=== PATIENT | female | born 1965 | race Caucasian/White ===

== ENCOUNTER → 2021-01-10 16:56 | Outpatient (CLI) | payer OTHER, SELFPAY ==
--- NOTE | ~2021-01-10 | MM_ITS ---
EXAMINATION: MM screening [facility] BI w claus HISTORY: Screening mammogram TECHNIQUE: Craniocaudal and mediolateral oblique 3-D tomosynthesis images were obtained and synthetic 2-D images were generated. CAD analysis was submitted and interpreted. COMPARISON: 02/19/2018, 01/29/2017, 01/11/2016 BREAST PARENCHYMAL COMPOSITION: There are scattered areas of fibroglandular density. FINDINGS: There is no evidence of suspicious mass, calcification, or architectural distortion to sugg est malignancy in either breast. There has been no suspicious interval change. IMPRESSION: 1. No mammographic evidence of malignancy. 2. Recommend routine screening mammography in one year. BI-RADS Category 1: Negative Reviewed, dictated and finalized at location A.
== END ==
PROVIDERS: Visit Provider Obstetrics & Gynecology
DX: Z12.31 Encounter for screening mammogram for malignant neoplasm of breast (principal)
CPT/HCPCS: 77063; 77067

== ENCOUNTER → 2022-05-03 16:58 | Outpatient (CLI) | payer OTHER, SELFPAY ==
--- NOTE | ~2022-05-03 | MM_ITS ---
EXAMINATION: MM screening [facility] BI w claus HISTORY: Screening mammogram TECHNIQUE: Craniocaudal and mediolateral oblique 3-D tomosynthesis images were obtained and synthetic 2-D images were generated. CAD analysis was submitted and interpreted. COMPARISON: 01/10/2021, 02/19/2018, 01/29/2017 BREAST PARENCHYMAL COMPOSITION: There are scattered areas of fibroglandular density. FINDINGS: No suspicious mass, calcification, or architectural distortion are identified in either [place] ast to suggest malignancy. There has been no suspicious interval change. IMPRESSION: 1. No mammographic evidence of malignancy. 2. Recommend routine screening mammography in one year. BI-RADS Category 1: Negative Reviewed, dictated and finalized at location B.
== END ==
PROVIDERS: PCP Internal Medicine; Visit Provider Internal Medicine
DX: Z12.31 Encounter for screening mammogram for malignant neoplasm of breast (principal)
CPT/HCPCS: 77063; 77067

== ENCOUNTER 2022-06-15 16:41 | Emergency (ER) | payer OTHER, SELFPAY ==
[2022-06-15 16:54] VITALS: BP 162/87; PULSE 99; RESP 16; TEMP 36.6; O2SAT 100
[2022-06-15 18:20] LABS: Appearance Urine Clear (Clear); Bilirubin Urine Negative (Negative); Blood Urine Negative (Negative); Color Urine Yellow (Yellow); Glucose Urine UA Negative (Negative); Ketones Urine Negative (Negative); Leukocyte Esterase Ur Negative LEU/UL (Negative); Nitrate Urine Negative (Negative); Protein Urine Negative (Negative); Specific Grav Ur >= 1.030 (1.001-1.035); Urobilinogen Urine 0.2 mg/dL (<2.0); pH Urine 5.5 (5.0-9.0)
[2022-06-15 18:39] LABS: Mucus Urine Rare /lpf; RBC Urine 0-2 /hpf (0-2); Squamous Epithelial Cell Urine Rare /hpf (Few); WBC Urine 0-3 /hpf
[2022-06-15 18:40] LABS: Add Urine Microscopic? YES
--- NOTE | 2022-06-15 20:52 | ED.BACK ---
HPI - Back Pain/Injury General Chief Complaint: Back Pain/Injury Stated Complaint: back pain Time Seen by Provider: 06/15/22 20:30 Source: RN notes reviewed History of Present Illness HPI Narrative: Patient presents emergency department from home for low back pain. Patient states that she has a history of chronic lower back pain since she had an epidural 30 years ago. She states her back began to ache approximately 10 days ago but has worsened over the past 3 days the pain is located in lower back and radiates pain into the bilateral legs she denies any direct trauma or injury she denies any fevers or chills abdominal pain bowel or bladder incontinence numbness or weakness of the extremities or any other symptoms. States she has been taking aspirin for the pain at home with minimal relief states she has never seen a back doctor for her symptoms. States that she has a flareup of her back pain approximately twice a year Related Data Home Medications Medication Instructions Recorded Confirmed alprazolam 0.25 mg tablet 0.25 mg PO .COMPLEX 08/05/19 loratadine 10 mg tablet 10 mg PO DAILY 08/05/19 Allergies Allergy/AdvReac Type Severity Reaction Status Date / Time Penicillins Allergy Unknown Verified 09/29/15 08:50 Review of Systems Review of Systems: Gen.: Denies fevers or chills ENT: Denies congestion Respiratory: Denies shortness of breath CV: Denies chest pain GI: Denies abdominal pain nausea, emesis or diarrhea denies incontinence Musculoskeletal: See HPI Neuro: Denies numbness, tingling, weakness or focal weakness Skin: Denies rash Except as documented, all other systems reviewed and negative [facility] Past Medical History Medical History (Updated 06/15/22 @ 20:56 by Candelario Wu DO) Patient denies significant medical history Family History Family History Mother Family history of type 2 diabetes mellitus Social History Social History Smoking status: Never smoker Alcohol intake: never Exam Narrative: APPEARANCE: No acute distress, nontoxic, resting in bed Eyes: EOMI HEENT: Normocephalic, atraumatic, CV: Regular rate and rhythm without murmur RESPIRATORY: No respiratory distress. Clear to auscultation bilaterally. Abdomen: Soft and nontender, no rebound or guarding MUSCULOSKELETAl: Moves all extremities, no clubbing cyanosis or edema Back: No midline lumbar tenderness to palpation or step-off, tender to palpation over bilateral paravertebral muscles L3-5 , pain increased with forward flexion NEURO: Awake and alert. Following commands, speech normal, no focal deficits, muscle strength 5 out of 5 bilateral lower extremities, bilateral patellar reflex 2+ SKIN:: Warm, dry. Normal Color no rash or lesions Course Course Emergency Course: Discussed with patient results of workup and diagnosis. Discussed need for follow-up with primary care, proper use of medication, and reasons to return to the emergency department. Patient understands and agrees to current treatment plan Vital Signs Vital signs: Vital Signs Temperature 97.9 F 06/15/22 16:54 Pulse Rate 99 06/15/22 16:54 Respiratory Rate 16 06/15/22 16:54 Blood Pressure 162/87 H 06/15/22 16:54 Pulse Oximetry 100 06/15/22 16:54 Oxygen Delivery Room Air 06/15/22 16:54 Temperature 97.9 F 06/15/22 16:54 Pulse Rate 99 06/15/22 16:54 Respiratory Rate 16 06/15/22 16:54 Blood Pressure 162/87 H 06/15/22 16:54 Pulse Oximetry 100 06/15/22 16:54 Oxygen Delivery Room Air 06/15/22 16:54 MDM - Back Pain/Injury MDM Narrative Medical decision making narrative: Patient?s pain is positional and localized to back without signs of cord compression or cauda equina. Normal nuerologic exams. No fever noted and no significant risk factors for osteomyelitis or spinal epidural abscess. No symptoms or signs t
[2022-06-15] MEDS: CYCLOBENZAPRINE HCL 10 MG TABLET PO (21:16)
[2022-06-15] MEDS: predniSONE 20 MG TABLET 60 MG PO (21:16)
[2022-06-15] MEDS: IBUPROFEN 600 MG TABLET PO (21:16)
== END 2022-06-15 21:00 | disposition home or self-care (01) ==
LOC: ANHED 21:12
PROVIDERS: Emergency Medicine; Emergency Provider Emergency Medicine; PCP Physician Assistant Medical
DX: M54.50 Low back pain, unspecified (principal)
CPT/HCPCS: 81001; 99283; A9270; J7512

== ENCOUNTER → 2022-09-15 16:13 | Outpatient (CLI) | payer OTHER, SELFPAY ==
--- NOTE | ~2022-09-15 | MR_ITS ---
MRI of the lumbar spine Clinical History: Back pain Technique: Axial T2-weighted images, and sagittal T1-weighted, T2-weighted, and T2 fat-sat images wer e acquired. Findings: There is no fracture nor lumbar spine. Minimal grade 1 retrolisthesis of L3 over L4 present . No suspicious or abnormal bone marrow signal abnormality identified. At L1-L2, there is no significant disc bulge or herniation. There is mild facet arthropathy. No spina l canal stenosis or neural foraminal narrowing. At L2-L3, there is no disc bulge. There is facet arthropathy. There is no jose spinal canal stenosis or neural foraminal narrowing. At L3-L4, there is disc bulge and facet arthropathy. There is probable focal mild to moderate thecal sac compression. There is mild bilateral neural foraminal narrowing. At L4-L5, there is minimal disc bulge. Facet joint arthropathy is present. There is minimal central c anal stenosis. There is minimal bilateral neural foraminal narrowing. At L5-S1, there is no disc bulge or herniation. There is facet arthropathy. No spinal canal stenosis or neural foraminal narrowing. Paravertebral soft tissues are unremarkable. Impression: Mild degenerative spondylosis, as detailed above. Minimal grade 1 retrolisthesis of L3 over L4. Reviewed, dictated and finalized at [facility]. REVERSER Impression: Mild degenerative spondylosis, as detailed above. Minimal grade 1 retrolisthesis of L3 over L4.
--- NOTE | ~2022-09-15 | XR_ITS ---
XR lumbar spine min 4V 09/15/2022 17:01 Indication: Back pain Procedure: 4 views lumbar spine Comparison: No prior studies for comparison. Findings: There is grade 1 spondylolisthesis at L5-S1. There is disc narrowing at L3-4 through L5-S1. There is facet hypertrophy at these levels. No acute fracture or traumatic malalignment. No signific ant alteration of alignment with flexion/extension. There is levoscoliosis. Pedicles intact. Sacral f oramen are symmetric. Impression: 1: Moderate lumbar spondylosis. Reviewed, dictated and finalized at location A. [employer]TO[employer] TECH[employer]OLOGIST Impression: 1: Moderate lumbar spondylosis.
== END ==
PROVIDERS: PCP Nurse Practitioner Adult Health; Visit Provider Nurse Practitioner Adult Health
DX: M47.816 Spondylosis without myelopathy or radiculopathy, lumbar region (principal); M43.16 Spondylolisthesis, lumbar region
CPT/HCPCS: 72110; 72148

== ENCOUNTER 2023-04-18 00:15 | Day surgery (SDC) | payer OTHER, SELFPAY ==
--- NOTE | 2023-04-10 18:38 | PC.NURSE ---
Report to the Outpatient Waiting Room, entrance under the green pavilion located off [facility], at time 0615 on date 04/18/23. Planned Procedure Time: 0815. Time changes happen often and if your time is changed the preop area will call you the afternoon before. - You and your visitor will be asked to self-screen and do not enter if you have any COVID symptoms. - A mask is optional within the hospital at this time. Patients may have clear liquids (water, carbonated beverages, clear teas, apple juice) until 3 hours prior to surgery with a maximum of 20 ounces. 0515 - No food from midnight until time of surgery - Infants may have breast milk until 4 hours before surgery, formula 6 hours prior to surgery. - Children will be allowed to drink immediately following surgery. If applicable, please bring a bottle or sippy cup to assist with drinking. Juice, water, soda, and popsicles are readily available. For infants on formula, please bring formula the day of surgery. Pacifiers are allowed. Take the following medications with a SIP of water the morning of surgery: None DO NOT STOP ANY OF YOUR OTHER PRESCRIPTION MEDICATIONS PRIOR TO SURGERY ?EXCEPT THE FOLLOWING Medications to discontinue per physician Multivitamin Date to take last dose 04/15/23 Please no make-up, nail occitan, hairspray, perfume, deodorant, or body powder the day of surgery. No jewelry (including any body piercings) or valuables the day of surgery, leave them at home. Please take a shower or bath the night before, or the morning of, surgery with an antibacterial soap. Wear comfortable, loose fitting clothing. Children are encouraged to wear pajamas. - Jewelry must be removed prior to entering the operating room. Rings and piercings that are not removed may be cut off. - The hospital will not accept responsibility for valuables. - Please leave all valuables, including medications, at home the day of surgery. If you are going home after surgery, a licensed [employer] driver must drive you home. - NO public transportation without another adult if you receive anesthesia. - We recommend that an adult stay with you for 24 hours following discharge. - We also recommend that you do not drive, make important decision, drink alcoholic beverages, or take any drugs that were not prescribed by your health care provider for at least 24 hours after your discharge time. For Pediatric surgeries, we recommend two adults accompany the child home. Follow any additional instructions given to you from your surgeon. If you or anyone in your household have experienced Covid symptoms in the past week, please notify your surgeon or the nurse liaison at the phone number below for possible testing. Telephone instructions given to Patient- Billie Singh and asked if any additional questions and then verbalized understanding. Patient advised to call surgeon office or pre surgery nurse liaison [phone] if any additional questions.
[2023-04-10 18:44] VITALS: BMI 33.7
[2023-04-18 06:26] VITALS: BP 169/94; PULSE 102; RESP 22; TEMP 37; O2SAT 99
[2023-04-18] MEDS: ACETAMINOPHEN 500 MG TABLET 1000 MG PO (06:28)
[2023-04-18] MEDS: LACTATED RINGERS 1,000 ML 30 ML IV CONT (06:34)
--- NOTE | 2023-04-18 07:40 | WPDANESEPPF ---
Anes - Initial Pre Proc Eval Procedure: Operation Date: 04/18/23 08:15 Proposed Procedures p Hysteroscopy Dilation and Curettage - Yamilet Siegel MD Date/Time: 04/18/23 07:40 Surgeon: Yamilet Siegel MD Pre Op Diagnosis: postmenopausal bleeding Patient Data Age: 57 Gender: F Height: 1.6 m Weight: 89.2 kg Last Vital Signs Temp 37.0 C 04/18/23 06:26 Pulse 102 H 04/18/23 06:26 Resp 22 H 04/18/23 06:26 BP 169/94 H 04/18/23 06:26 Pulse Ox 99 04/18/23 06:26 O2 Del Method Room Air 04/18/23 06:26 Allergies Allergy/AdvReac Type Severity Reaction Status Date / Time Penicillins Allergy Unknown Hives Verified 04/18/23 06:25 Home Medications Medication Instructions Recorded Confirmed Type multivitamin 1 tablet PO DAILY 12/29/22 04/10/23 History Patient hx anesthesia problems: none Family hx anesthesia problems: none Results Review: All pre-operative results and documents have been reviewed as part of the pre-operative evaluation. [facility] Past Medical History Medical History (Updated 04/18/23 @ 07:40 by Johnathon Taylor MD) Lumbar spondylosis Obesity Patient denies significant medical history Snoring Surgical History Surgical History History of tubal ligation (1998) Family History Family History Mother Family history of type 2 diabetes mellitus Cerebrovascular accident Grandparent Cancer Social History Social History Smoking status: Never smoker Alcohol intake: never Drinks per week: 2 Anes - Eval Final PreProcedure Day of Procedure 04/18/23 07:40 Patient weight: obese Heart: regular rate and rhythm Lungs: clear to auscultation Airway: Mallampati scale class II Neurological: alert and oriented Last oral intake: >/= 8 hours ASA classification: II Emergent: no Anesthetic plan: proceed Anesthesia type and monitoring: general GIVS and standard monitoring Results Review: All pre-operative results and documents have been reviewed as part of the pre-operative evaluation. Informed Consent: The patient's anesthetic plan and its attendant risks and benefits were discussed with the patient/family/POA. Questions were solicited and answers provided to the satisfaction of the patient/family/POA.
--- NOTE | 2023-04-18 08:07 | PM.IMHP ---
H&P: HPI History of Present Illness Date/Time: 04/18/23 08:07 Chief Complaint: Postmenopausal bleed Narrative: 49-year-old female with postmenopausal bleeding. We have agreed to perform hysteroscopy D&C. She understands the procedure. She understands there is risk. She understands areas may occur that result in hospitalization, more surgery, and severe illness. She understands risk of hemorrhage and infection. She denies any nausea, vomiting, fever, chills. She denies any chest pain or shortness of breath. Review of Systems Review of Systems: All systems reviewed & are unremarkable except as noted in HPI and below Constitutional: Constitutional: Denies chills, Denies fatigue, Denies fever(s) and Denies weakness Eyes: Eyes: Denies blurry vision, Denies change in vision, Denies loss of peripheral vision, Denies loss of vision, Denies other visual disturbances and Denies eye pain ENT: Denies vertigo, Denies dizziness, Denies hearing loss, Denies mouth pain, Denies nasal obstruction, Denies neck mass and Denies neck pain Cardiovascular: Cardiovascular: Denies chest pain, Denies diaphoresis, Denies syncope, Denies leg edema and Denies dyspnea Respiratory: Respiratory: Denies chest congestion, Denies cough, Denies hemoptysis, Denies dyspnea and Denies wheezing Gastrointestinal: Gastrointestinal: Denies abdominal pain, Denies constipation, Denies diarrhea, Denies nausea and Denies vomiting Genitourinary: Genitourinary: Denies hematuria, Denies change in libido, Denies nocturia, Denies genital lesions, Denies flank pain and Denies urinary urgency Musculoskeletal: Musculoskeletal: Denies abnormal gait, Denies back pain, Denies myalgias, Denies arthralgias, Denies joint swelling, Denies muscle weakness and Denies neck pain Integumentary/Breasts: Skin/Breast: Denies swelling, Denies breast pain, Denies breast mass, Denies dry skin, Denies nipple discharge, Denies unusual bruising and Denies jaundice Neurologic: Denies Neuro-related abnormal movements, Denies Abnormal speech present, Denies abnormal gait, Denies behavioral changes, Denies confusion, Denies vertigo, Denies dizziness, Denies syncope, Denies loss of vision, Denies memory loss, Denies convulsions and Denies weakness Psychiatric: Psychiatric: Denies abnormal sleep pattern, Denies behavioral changes, Denies change in libido, Denies confusion, Denies depression, Denies anhedonia and Denies memory loss Endocrine: Endocrine: Reports no additional endocrine complaints, Denies change in libido and Denies fatigue Hematologic/Lymphatic: Hematologic/Lymphatic: Reports no additional hematologic/lymphatic complaints Allergic/Immunologic: Allergic/Immunologic: Reports no additional allergic/immunologic complaints and Denies wheezing PMFSH Past Medical History Medical History (Updated 04/18/23 @ 08:09 by Yamilet Siegel MD) Lumbar spondylosis Obesity Patient denies significant medical history Snoring Surgical History Surgical History History of tubal ligation (1998) Family History Family History Mother Family history of type 2 diabetes mellitus Cerebrovascular accident Grandparent Cancer Social History Social History Smoking status: Never smoker Alcohol intake: never Drinks per week: 2 Meds Home Medications and Allergies Home Medications Medication Instructions Recorded Confirmed Type multivitamin 1 tablet PO DAILY 12/29/22 04/10/23 History Allergies Allergy/AdvReac Type Severity Reaction Status Date / Time Penicillins Allergy Unknown Hives Verified 04/18/23 06:25 Vital Signs Vital Signs - 24 hr 04/18/23 06:26 Temperature 98.6 F Pulse Rate 102 H Respiratory Rate 22 H Blood Pressure 169/94 H Pulse Oximetry 99 Oxygen Delivery Room Air Exam Const: General: cooperative, h
--- NOTE | 2023-04-18 08:10 | WPDHPUPDATE1 ---
History and Physical Update Update Date/Time: 04/18/23 08:10 History and Physical has been reviewed, including an updated exam of the patient. There are NO changes in the patient's condition. Risks, benefits, and alternatives have been discussed and questions answered. Patient agrees to proceed with procedure.
[2023-04-18] MEDS: KETOROLAC 15 MG/ML VIAL (*BKC) IV PUSH (08:19)
[2023-04-18] MEDS: LIDOCAINE HCL 1% LOCAL INJ 20 ML VIAL 10 ML INFILTRATE (08:22)
[2023-04-18 08:43] VITALS: BP 120/73; PULSE 93; RESP 20; O2SAT 95
--- NOTE | 2023-04-18 08:44 | W.PM.PROC2 ---
Procedure Note - Detailed Date of Procedure 04/18/23 Pre-op Diagnosis postmenopausal bleeding Post-op Diagnosis Same Procedure Performed Hysteroscopy D&C Surgeon Yamilet Siegel MD Anesthesia MAC Indications abnormal uterine bleeding Description of Procedure the patient was taken the operating room. She was prepped and draped in the dorsal lithotomy position after induction of mac anesthesia. A speculum was placed in the vagina. The cervix was grasped with a tenaculum. The cervix was dilated about 1 cm. The hysteroscope was inserted. The intrauterine cavity and endocervix were evaluated. Hysteroscope was withdrawn. A medium-size curette was used to curettage all the surfaces were within the endometrial cavity. the sample was collected on Telfa and sent to pathology. The hysteroscope was reinserted and the above findings were noted. Patient tolerated the procedure well. The speculum and tenaculum were removed. She was taken recovery room in stable condition. Sponge lap and needle counts were correct x2. Estimated Blood Loss 40 Drains No Packing No Pathology Yes Complications No immediate complications Condition Stable Disposition PACU
[2023-04-18 09:10] VITALS: BP 128/78; PULSE 85; RESP 20
[2023-04-18] MEDS: oxyCODONE HCL (*CRX) 5 MG TAB IR PO (09:17)
[2023-04-18 09:40] VITALS: BP 135/82; PULSE 78; RESP 20
[2023-04-18 09:55] VITALS: BP 133/82; PULSE 79; RESP 20
== END 2023-04-18 09:56 | disposition home or self-care (01) ==
PROVIDERS: PCP Nurse Practitioner Family; Visit Provider Obstetrics & Gynecology
PROC: 0U5B8ZZ Destruction of Endometrium, Via Natural or Artificial Opening Endoscopic (ICD-10-PCS; CPT 58563; principal; 2023-04-18 08:15)
DX: N95.0 Postmenopausal bleeding (principal); N85.9 Noninflammatory disorder of uterus, unspecified; E66.9 Obesity, unspecified; Z68.34 Body mass index [BMI] 34.0-34.9, adult
CPT/HCPCS: 58558; 88305; A9270; J1100; J1885; J2250; J2405; J2704; J3010; J7120

== ENCOUNTER 2023-10-19 15:22 | Outpatient (CLI) | payer OTHER, SELFPAY ==
--- NOTE | ~2023-10-19 | MM_ITS ---
EXAMINATION: MM screening [facility] HISTORY: Screening TECHNIQUE: Craniocaudal and mediolateral oblique 3-D tomosynthesis images were obtained and synthetic 2-D images were generated. CAD analysis was submitted and interpreted. COMPARISON: Comparison to multiple prior studies sequentially, with oldest reviewed study dated 12/2014. BREAST PARENCHYMAL COMPOSITION: Not dense: There are scattered areas of fibroglandular density. FINDINGS: There is no evidence of suspicious mass, calcification, or architectural distortion to sugg est malignancy in either breast. There has been no suspicious interval change. IMPRESSION: 1. No mammographic evidence of malignancy. 2. Recommend routine screening mammography in one year. BI-RADS Category 1: Negative Reviewed, dictated and finalized at location A.
== END 2023-10-19 15:23 ==
LOC: MICIMG 15:23
PROVIDERS: PCP Obstetrics & Gynecology; Visit Provider Obstetrics & Gynecology
DX: Z12.31 Encounter for screening mammogram for malignant neoplasm of breast (principal)
CPT/HCPCS: 77063; 77067

== ENCOUNTER 2025-06-11 07:53 | Outpatient (CLI) | payer OTHER, SELFPAY ==
--- NOTE | ~2025-06-11 | MM_ITS ---
EXAMINATION: MM screening [facility] HISTORY: Screening TECHNIQUE: Craniocaudal and mediolateral oblique 3-D tomosynthesis images were obtained and synthetic 2-D images were generated. CAD analysis was submitted and interpreted. COMPARISON: Comparison to multiple prior studies sequentially, with oldest reviewed study dated 01/11/2016. BREAST PARENCHYMAL COMPOSITION: Not dense: There are scattered areas of fibroglandular density. FINDINGS: There is no evidence of suspicious mass, calcification, or architectural distortion to suggest malignancy in either breast. There has been no suspicious interval change. IMPRESSION: 1. No mammographic evidence of malignancy. 2. Recommend routine screening mammography in one year. BI-RADS Category 1: Negative Reviewed, dictated and finalized at location B. SAMPLER
== END 2025-06-11 07:54 | disposition home or self-care (01) ==
PROVIDERS: PCP Nurse Practitioner Family; Visit Provider Obstetrics & Gynecology
DX: Z12.31 Encounter for screening mammogram for malignant neoplasm of breast (principal)
CPT/HCPCS: 77063; 77067